=== PATIENT | female | born 1940 | race Caucasian/White ===

== ENCOUNTER 2017-07-04 00:39 | Emergency (ER) | payer OTHER ==
[~2017-07-04] VITALS: Ht 165.1 cm; Wt 78.9 kg
[2017-07-04 05:57] VITALS: BP 158/80
== END 2017-07-04 07:47 | disposition home or self-care (01) ==
LOC: ER 00:49
DX: S02.2XXA Fracture of nasal bones, initial encounter for closed fracture (principal); Z88.0 Allergy status to penicillin; Z88.6 Allergy status to analgesic agent; W01.0XXA Fall on same level from slipping, tripping and stumbling without subsequent striking against object, initial encounter; Y93.89 Activity, other specified; Y92.89 Other specified places as the place of occurrence of the external cause; Y99.8 Other external cause status
CPT/HCPCS: 70450; 70486; 73080; 73562

== ENCOUNTER 2020-09-17 18:44 | Emergency (ER) | payer OTHER ==
[~2020-09-17] VITALS: Ht 165.1 cm; Wt 70.3 kg
[2020-09-17 21:40] VITALS: BP 106/52
[2020-09-17] MEDS ORDERED: ACETAMINOPHEN 500 MG TAB PO ONE (22:15)
== END 2020-09-17 23:51 | disposition home or self-care (01) ==
LOC: ER 18:48
DX: S01.01XA Laceration without foreign body of scalp, initial encounter (principal); M48.48XA Fatigue fracture of vertebra, sacral and sacrococcygeal region, initial encounter for fracture; E11.9 Type 2 diabetes mellitus without complications; Z79.01 Long term (current) use of anticoagulants; Z88.5 Allergy status to narcotic agent; Z88.0 Allergy status to penicillin; W18.09XA Striking against other object with subsequent fall, initial encounter; Y93.89 Activity, other specified; Y92.89 Other specified places as the place of occurrence of the external cause; Y99.8 Other external cause status
CPT/HCPCS: 12001; 70450; 72220